=== PATIENT | female | born 1975 | race Caucasian/White ===

== ENCOUNTER 2017-01-11 12:08 | Emergency (ER) | payer SELFPAY ==
[~2017-01-11] VITALS: Ht 167.6 cm; Wt 88.0 kg
[2017-01-11 12:22] VITALS: BP_SYST 156
--- NOTE | 2017-01-11 13:14 | NUR ---
Patient to ER bed 7 to gown for evaluation. Side rails up. Report received from Wilson ROMAN
--- NOTE | 2017-01-11 13:15 | NUR ---
Urine specimen collected and sent to lab
--- NOTE | 2017-01-11 13:16 | NUR ---
Pt presents to ED c/o UTI symptoms w/ dysuria. Pt reports h/o frequent UTI's and noncompliance w/ NIDDM. Pt has no acute distress noted.
[2017-01-11 13:39] LABS: BILIRUBIN,URINE NEGATIVE (NEGATIVE); CLARITY/URINE SL HAZY (CLEAR); COLOR,URINE YELLOW (YELLOW); GLUCOSE,URINE NEGATIVE (NEGATIVE); KETONES,URINE NEGATIVE (NEGATIVE); LEUKOCYTE ESTERASE ,URINE 3+ (NEGATIVE); NITRITE, URINE NEGATIVE (NEGATIVE); PH,URINE 5.5 (5.0-8.0); PROTEIN URINE NEGATIVE (NEGATIVE); UROBILINOGEN,URINE 0.2 (0.2-1.0)
[2017-01-11 13:50] LABS: BLOOD, URINE TRACE (NEGATIVE)
[2017-01-11 13:54] LABS: BACTERIA,URINE MODERATE /HPF (None Seen); MUCUS,URINE None Seen /LPF (None Seen)
--- NOTE | 2017-01-11 14:23 | NUR ---
ER at bedside examining patient.
[2017-01-11 14:45] VITALS: BP_SYST 148
--- NOTE | 2017-01-11 14:45 | NUR ---
Patient given written and verbal discharge instructions and verbalizes understanding. ER MD discussed with patient the results and treatment provided. Patient in stable condition. ID arm band removed. Rx of cipro given. Patient educated on pain management and to follow up with PMD. Pain Scale 2 Opportunity for questions provided and answered.
== END 2017-01-11 14:45 | disposition home or self-care (01) ==
LOC: SED 12:08
DX: N39.0 Urinary tract infection, site not specified (principal); Z88.5 Allergy status to narcotic agent; Z91.013 Allergy to seafood
CPT/HCPCS: 81000-TC; 87086; 99284